=== PATIENT | male | born 1980 | race African-American/Black ===

== ENCOUNTER 2017-08-24 21:01 | Emergency (ER) | payer SELFPAY ==
--- NOTE | 2017-08-24 21:18 | EDM.PDOC ---
ED HPI GENERAL MEDICAL PROBLEM - General Chief Complaint: Genitourinary Problem Stated Complaint: UNK Time Seen by Provider: 08/24/17 21:04 Source of Information: Reports: Patient History Limitations: Reports: No Limitations - History of Present Illness INITIAL COMMENTS - FREE TEXT/NARRATIVE: HISTORY AND PHYSICAL: History of present illness: Patient is a 37-year-old male who presents to the emergency room today with complaints of penile pain and discharge. He recently moved here, 8 days ago, from [facility] to be with his fiance. He states it is painful to have intercourse. He is here today with his fiance who also has also checked into the emergency room with complaints of vaginal discharge (new onset). He denies any previous complaints or diagnoses of STDs. Denies any fever, chills, abdominal pain, nausea, vomiting, diarrhea or constipation. No testicular pain, swelling or erythema. Review of systems: As per history of present illness and below otherwise all systems reviewed and negative. Past medical history: As per history of present illness and as reviewed below otherwise noncontributory. Surgical history: As per history of present illness and as reviewed below otherwise noncontributory. Social history: No reported history of drug or alcohol abuse. Family history: As per history of present illness and as reviewed below otherwise noncontributory. Physical exam: General: Well-developed and well-nourished 37-year-old -[place] male. Alert and oriented. Nontoxic appearing and in no acute distress. HEENT: Atraumatic, normocephalic, pupils equal and reactive bilaterally, negative for conjunctival pallor or scleral icterus, mucous membranes moist, throat clear, neck supple, nontender, trachea midline. No drooling or trismus noted. No meningeal signs Lungs: Clear to auscultation, breath sounds equal bilaterally, chest nontender. Heart: S1S2, regular rate and rhythm without overt murmur Abdomen: Soft, nondistended, nontender. Negative for masses or hepatosplenomegaly. Negative for costovertebral tenderness. Pelvis: Stable nontender. Genitourinary: This was done with a lumber yard worker at the bedside. Normal appearing external genitalia. No lesions, erythema or soft tissue swelling noted. Rectal: Deferred. Skin: Intact, warm, dry. No lesions or rashes noted. Extremities: Atraumatic, negative for cords or calf pain. Neurovascular unremarkable. Neuro: Awake, alert, oriented. Cranial nerves II through XII unremarkable. Cerebellum unremarkable. Motor and sensory unremarkable throughout. Exam nonfocal. Notes: Due to the patient's lack of health care prior to arrival to the [facility] I will treat him prophylactically with Rocephin and azithromycin. Thorough education was provided. He voices understanding and is agreeable to plan of care. He denies any further questions or concerns at this time. Diagnostics: Gonorrhea/chlamydia Therapeutics: [] Impression: Possible STD exposure Plan: 1. Please abstain from sex and/or practice safe sex (use condoms) until you have your results. 2. Establish care with a primary care provider for re-evaluation in 1-2 days. Return to the ED as needed and as discussed Definitive disposition and diagnosis as appropriate pending reevaluation and review of above. - Related Data Allergies Allergy/AdvReac Type Severity Reaction Status Date / Time No Known Allergies Allergy Verified 08/24/17 21:13 Home Meds: Home Meds . [No Known Home Meds] 08/24/17 [History] ED ROS GENERAL - Review of Systems Review Of Systems: ROS reveals no pertinent complaints other than HPI. ED EXAM, GI/ABD - Physical Exam Exam: See Below (See dictation) Course - Vital Signs Last Recorded V/S: Last Vital Signs Temp 98.7 F 08/24/17 21:11 Pulse 78 08/24/17 21:11 Resp 16 08/24/17 21:11 BP 114/80 08/24/17 21:11 Pulse Ox 99 08/24/17 21:11 - Orders/Labs/Meds Orders: Active Orders 24 hr Category Date Time Status CHLAMYDIA AND GONORRHEA BY TMA Stat Lab 08/24/17 21:10 Received Azithromycin [Zithromax] Med 08/24/17 21:21 Stat 1,000 mg PO NOW STA cefTRIAXone [Rocephin] 250 mg Med 08/24/17 21:21 Ordered Lidocaine 1% [Xylocaine-MPF 1%] 1 ml IM ONETIME Departure - Departure Time of Disposition: 21:22 Disposition: Home, Self-Care 01 Clinical Impression: Possible exposure to STD - Discharge Information Instructions: Sexually Transmitted Disease, [id number] Referrals: PCP,None [Primary Care Provider] - Forms: ED Department Discharge Additional Instructions: The following information is given to patients seen in the emergency department who are being discharged to home. This information is to outline your options for follow-up care. We provide all patients seen in our emergency department with a follow-up referral. The need for follow-up, as well as the timing and circumstances, are variable depending upon the specifics of your emergency department visit. If you don't have a primary care physician on staff, we will provide you with a referral. We always advise you to contact your personal physician following an emergency department visit to inform them of the circumstance of the visit and for follow-up with them and/or the need for any referrals to a consulting specialist. The emergency department will also refer you to a specialist when appropriate. This referral assures that you have the opportunity for follow-up care with a specialist. All of these measure are taken in an effort to provide you with optimal care, which includes your follow-up. Under all circumstances we always encourage you to contact your private physician who remains a resource for coordinating your care. When calling for follow-up care, please make the office aware that this follow-up is from your recent emergency room visit. If for any reason you are refused follow-up, please contact the [facility] Emergency Department at and asked to speak to the emergency department charge nurse. [facility] [address] [place] [phone] 1. Please abstain from sex and/or practice safe sex (use condoms) until you have your results. 2. Establish care with a primary care provider for re-evaluation in 1-2 days. Return to the ED as needed and as discussed - My Orders Last 24 Hours: My Active Orders 08/24/17 21:10 CHLAMYDIA AND GONORRHEA BY TMA Stat 08/24/17 21:21 Azithromycin [Zithromax] 1,000 mg PO NOW STA cefTRIAXone [Rocephin] 250 mg Lidocaine 1% [Xylocaine-MPF 1%] 1 ml IM ONETIME - Assessment/Plan Last 24 Hours: My Active Orders 08/24/17 21:10 CHLAMYDIA AND GONORRHEA BY TMA Stat 08/24/17 21:21 Azithromycin [Zithromax] 1,000 mg PO NOW STA cefTRIAXone [Rocephin] 250 mg Lidocaine 1% [Xylocaine-MPF 1%] 1 ml IM ONETIME
[2017-08-24] MEDS ORDERED: Azithromycin 250 MG Tab PO STA (21:21)
[2017-08-24] MEDS ORDERED: cefTRIAXone 250 MG in Lidocaine 1% 1 ML IM ONE (21:21)
== END 2017-08-24 22:00 | disposition home or self-care (01) ==
LOC: MW.ED 21:01
DX: Z20.2 Contact with and (suspected) exposure to infections with a predominantly sexual mode of transmission (principal)
CPT/HCPCS: 87491; 87591; 96372; 99283; A9270; J0696; J2001